=== PATIENT | female | born 1950 | race Hispanic/Latino ===

== ENCOUNTER 2023-02-09 19:16 | Emergency (ER) | payer MEDICARE ==
[~2023-02-09 19:16] MED LIST: ASPI-1005 PO; CLOP-31 PO; LISI10TA24 PO; METF-445 PO; SIMV-43 PO; TYL3 PO
== END 2023-02-09 20:23 | disposition left against medical advice (07) ==
LOC: EDH 19:16
DX: R68.89 Other general symptoms and signs (principal); Z53.21 Procedure and treatment not carried out due to patient leaving prior to being seen by health care provider